=== PATIENT | female | born 1945 | race Caucasian/White ===

== ENCOUNTER 2017-02-19 07:00 | Day surgery (SDC) | payer MEDICARE ==
[~2017-02-19 07:00] MED LIST: Acetaminophen TAB* 325 MG PO PRN; Buffered Lidocaine 0.9% SYRIN* 5 ML/SYR SYRINGE INTRADERM ONE
[2017-02-19] MEDS ORDERED: Midazolam* 1 MG/ML 2 ML VIAL (2 MG) ONE ×2 (08:43→08:52)
[2017-02-19 09:13] VITALS: BP 116/64
[2017-02-19] MEDS ORDERED: Proparacaine 0.5% OPHTH.SOL* 15 ML BTL ONE (11:07)
[2017-02-19] MEDS ORDERED: Lidocaine 1% MPF* 2 ML VIAL ONE (11:07)
[2017-02-19] MEDS ORDERED: Cyclopentolate 1% OPTH.SOL* 2 ML BTL ONE (11:07)
[2017-02-19] MEDS ORDERED: Povidone Iodine 5% OPTH* 30 ML BTL ONE (11:07)
[2017-02-19] MEDS ORDERED: acetaZOLAMIDE TAB* 250 MG ONE (11:07)
[2017-02-19] MEDS ORDERED: Flurbiprofen 0.03% OPTH.SOL* 2.5 ML BTL ONE (11:07)
[2017-02-19] MEDS ORDERED: Phenylephrine 2.5% OPTH.SOL* 2 ML BTL ONE (11:07)
[2017-02-19] MEDS ORDERED: Buffered Lidocaine 0.9% SYRIN* 5 ML/SYR SYRINGE ONE (11:07)
[2017-02-19] MEDS ORDERED: Neomycin/Polymy/Dex OPTH.SUSP* MAXITROL 0.1% 5 ML ONE (11:07)
--- NOTE | 2017-02-20 03:42 | OP ---
DATE OF OPERATION: 02/19/17 - [facility] DATE OF : 45 SURGEON: Adrian Easley M.D. PREOPERATIVE DIAGNOSIS: Cataract, right eye POSTOPERATIVE DIAGNOSIS: Cataract, right eye OPERATIVE PROCEDURE: Phacoemulsification, right eye with IOL. DESCRIPTION OF PROCEDURE: The patient was brought to the operating room after being given 1/2% Alcaine with epinephrine drops in the preoperative area. The eye was prepped and draped in the usual sterile fashion. Sterile drape and eyelid speculum were placed. Again, topical 1/2% Alcaine with epinephrine was given. A paracentesis incision was made at the 9 o'clock position with the No.75 blade. Clear cornea incision 2.2 x 2.2-mm was created at the 12 o'clock position starting at the anterior limbus using the 2.2-mm keratome. The anterior chamber was irrigated with 0.4 mL of 1% non-preservative intracameral lidocaine and filled with DisCoVisc. A capsulorrhexis was completed using the cystotome and the Utrata forceps. Hydrodissection was performed with balanced salt solution. The lens nucleus was removed with the Phacoemulsification handpiece without incident. Cortex was removed with the irrigation-aspiration handpiece. The capsular bag was re-inflated using DisCoVisc and an SN60WF 19.5 implant was inserted with the shooter. The irrigation-aspiration handpiece was used to remove all residual DisCoVisc. The eye was refilled with balanced salt solution and the wound checked and found to be watertight. Topical Maxitrol drops were given. [id number]/[facility] #: [id number] [facility]
== END 2017-02-19 09:23 | disposition home or self-care (01) ==
LOC: OREAST 07:00
PROVIDERS: ATTEND Specialist
DX: H25.11 Age-related nuclear cataract, right eye (principal); H43.813 Vitreous degeneration, bilateral
CPT/HCPCS: A9270-GY; J2250; V2632

== ENCOUNTER 2017-02-26 07:33 | Day surgery (SDC) | payer MEDICARE ==
[2017-02-26] MEDS ORDERED: fentaNYL* 50 MCG/ML 2 ML VIAL (100 MCG VIAL) ONE (08:51)
[2017-02-26] MEDS ORDERED: Midazolam* 1 MG/ML 2 ML VIAL (2 MG) ONE (08:52)
[2017-02-26 09:49] VITALS: BP 110/73
--- NOTE | 2017-02-26 10:01 | OP ---
DATE OF OPERATION: 02/26/2017. DATE OF : 1945. SURGEON: Adrian Easley M.D. PREOPERATIVE DIAGNOSIS: Cataract left eye. POSTOPERATIVE DIAGNOSIS: Cataract left eye. OPERATIVE PROCEDURE: Phacoemulsification left eye with IOL. PROCEDURE: The patient was brought to the operating room after being given 1/2% Alcaine with epinep hrine drops in the preoperative area. The eye was prepped and draped in the usual sterile fashion. Sterile drape and eyelid speculum were placed. Again, topical 1/2% Alcaine with epinephrine was gi leonardo. A paracentesis incision was made at the 3 o'clock position with the No.75 blade. Clear cornea incision 2.2 x 2.2-mm was created at the 6 o'clock position starting at the anterior limbus using t he 2.2-mm keratome. The anterior chamber was irrigated with 0.4 mL of 1% non-preservative intracame ral lidocaine and filled with DisCoVisc. A capsulorrhexis was completed using the cystotome and the Utrata forceps. Hydrodissection was performed with balanced salt solution. The lens nucleus was re moved with the Phacoemulsification handpiece without incident. Cortex was removed with the irrigati on-aspiration handpiece. The capsular bag was re-inflated using DisCoVisc and an [id number] 19 implant was inserted with the shooter. The irrigation-aspiration handpiece was used to remove all residual DisCoVisc. The eye was refilled with balanced salt solution and the wound checked and found to be w atertight. Topical Maxitrol drops were given. [id number]/[facility] #: [id number]
[2017-02-26] MEDS ORDERED: Lidocaine 1% MPF* 2 ML VIAL ONE (10:06)
[2017-02-26] MEDS ORDERED: Proparacaine 0.5% OPHTH.SOL* 15 ML BTL ONE (10:06)
[2017-02-26] MEDS ORDERED: Cyclopentolate 1% OPTH.SOL* 2 ML BTL ONE (10:06)
[2017-02-26] MEDS ORDERED: Neomycin/Polymy/Dex OPTH.SUSP* MAXITROL 0.1% 5 ML ONE (10:06)
[2017-02-26] MEDS ORDERED: Buffered Lidocaine 0.9% SYRIN* 5 ML/SYR SYRINGE ONE (10:06)
[2017-02-26] MEDS ORDERED: Flurbiprofen 0.03% OPTH.SOL* 2.5 ML BTL ONE (10:06)
[2017-02-26] MEDS ORDERED: acetaZOLAMIDE TAB* 250 MG ONE (10:06)
[2017-02-26] MEDS ORDERED: Povidone Iodine 5% OPTH* 30 ML BTL ONE (10:06)
[2017-02-26] MEDS ORDERED: Phenylephrine 2.5% OPTH.SOL* 2 ML BTL ONE (10:06)
== END 2017-02-26 09:43 | disposition home or self-care (01) ==
LOC: OREAST 07:33
PROVIDERS: ATTEND Specialist
DX: H25.12 Age-related nuclear cataract, left eye (principal); H43.813 Vitreous degeneration, bilateral
CPT/HCPCS: A9270-GY; J2250; J3010; V2632

== ENCOUNTER 2017-07-28 07:33 | Observation (INO) | payer MEDICARE ==
--- NOTE | 2017-07-10 16:55 | HP ---
AMENDED REPORT TO CORRECT ACCOUNT CC: Dajuan Smith MD* ADMISSION HISTORY AND PHYSICAL: DATE OF SURGERY: 07/28/17 ATTENDING SURGEON: Merrick German MD* (dictated by GAY Juarez) PRIMARY CARE PHYSICIAN: Dajuan Smith MD CHIEF COMPLAINT: Ventral hernia. HISTORY OF PRESENT ILLNESS: Ms. Fregoso is a pleasant 72-year-old female who returned to the office today to discuss ventral hernia repair. She notes that she has been doing well overall and denies any significant changes n her hernia. She is status post right colectomy back in 2014 with small supraumbilical incision. She noticed some bulging and occasional discomfort at the scar site for the past year or so, for which she has been evaluated and found to have a small ventral hernia. She was seen by Dr. German last month and found to have a small ventral incisional hernia in that site and we discussed with her proceeding with surgery. She denies any changes in the size of the hernia, changes in the bowel habits, abdominal distention, nausea, vomiting, or any other associated symptoms. She noticed increased bulge in the area when she coughed or sneezed; however, she has been able to reduce it manually every time. She was initially scheduled for a hernia repair over the summer; however, it had to be postponed due to a surgery that her had. She reports no significant changes since her last office visit and she is scheduled for hernia repair to be performed by Dr. German next month. PAST MEDICAL HISTORY: Significant for hyperlipidemia and gastroesophageal reflux disease. PAST SURGICAL HISTORY: Significant for a laparoscopic-assisted right colectomy back in 2014 due to a dysplastic polyp. 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 Most recently in February, she had bilateral cataract extractions. CURRENT MEDICATIONS: Include: 1. Lansoprazole 30 mg once daily. 2. Atorvastatin 40 mg 1 tablet daily. ALLERGIES: She is allergic to SULFA and AUGMENTIN. FAMILY HISTORY: Her father in his 40s from a car accident and mom in her 70s from complication of congestive heart failure. She denies any family history of colorectal malignancies. SOCIAL HISTORY: The patient is retired. She has never smoked. She drinks alcohol rarely and caffeine intake is minimal. REVIEW OF SYSTEMS: See HPI; otherwise, negative. She denies any headache, dizziness, blurred vision or double vision. No cough, sore throat, shortness of breath or wheezing. She denies any chest pain, palpitation or ankle edema. No back pain, flank pain, dysuria, hematuria, or urinary frequency. She admits to ventral hernia, but denies any changes in her bowel habits, nausea, vomiting or bleeding per rectum. No fever, chills, weight loss or night sweats. PHYSICAL EXAMINATION GENERAL: She is a pleasant healthy appearing 72-year-old female, in no acute distress or discomfort at this visit. VITAL SIGNS: Her vitals today revealed blood pressure of 114/74, pulse of 66, respirations of 16, temperature of 97.4. She weighs 190 pounds over a 5 feet 7 inch frame with a BMI of 30. HEENT: Head is normocephalic, atraumatic. PERRLA. Sclerae anicteric. EOMs intact. Oropharynx is pink and moist. NECK: Supple. Trachea midline. No cervical adenopathy or thyromegaly. LUNGS: Clear to auscultation bilaterally. There are no rales, wheezes, or rhonchi. HEART: Regular rate and rhythm. Normal S1 and S2 without rubs, murmurs, or gallops. BACK: Normal curvature. No CVA tenderness. BREAST EXAM: Deferred at this time. ABDOMEN: Soft, nontender and nondistended. There is a well-healed supraumbilical midline scar approximately 5 to 6 cm noted with no surrounding tenderness, erythema or swelling. There is a ventral hernia noted on deep palpation measuring approximately 3 to 4 cm that was again nontender on palpation. The patient was examined in both supine and standing position and there was no evidence of hernia or incarceration. No other hernias, masses or hepatosplenomegaly noted. RECTAL: Deferred at this time. NEUROLOGIC: Grossly intact. IMPRESSION: A 72-year-old female with a small ventral incisional hernia. PLAN: The patient is scheduled for an open ventral incisional hernia repair with mesh to be performed on 07/28/[address] German. The rationale, indications, risks and benefits of surgery were discussed with her today. Risks include but not limited to infection, bleeding, or injury to adjacent structures. She seems to understand and wishes to proceed as outlined. We will follow her up a week postoperatively as planned. GAY JUAREZ [id number]/[facility] #: [id number] [facility]
[~2017-07-28 07:33] MED LIST changes: -Acetaminophen TAB* 325 MG PO PRN; -Buffered Lidocaine 0.9% SYRIN* 5 ML/SYR SYRINGE INTRADERM ONE; +Buffered Lidocaine 0.9% SYRIN* 5 ML/SYR SYRINGE ONE; +Clindamycin 900 MG IVPREMIX(* 900 MG/50 ML SDV IV ONE
[2017-07-28] MEDS ORDERED: fentaNYL* 50 MCG/ML 2 ML VIAL (100 MCG VIAL) ONE ×4 (09:16→12:13)
[2017-07-28] MEDS ORDERED: Atracurium* 10 MG/ML 10 ML VIAL ONE (09:17)
[2017-07-28] MEDS ORDERED: Ondansetron INJ* 2 MG/ML VIAL IV PRN ×2 (10:47→12:42)
[2017-07-28] MEDS ORDERED: Ketorolac INJ* 30 MG/ML 1 ML VIAL IV PRN (10:47)
[2017-07-28] MEDS ORDERED: Naloxone* 0.4 MG/ML 1 ML VIAL IV PRN (10:47)
[2017-07-28] MEDS ORDERED: Ketorolac INJ* 30 MG/ML 1 ML VIAL ONE (11:54)
[2017-07-28] MEDS ORDERED: Ondansetron INJ* 2 MG/ML VIAL ONE (11:54)
[2017-07-28] MEDS: fentaNYL* 50 MCG/ML 2 ML VIAL (100 MCG VIAL) IV PRN ×4 (12:01→12:53)
[2017-07-28] MEDS ORDERED: Docusate CAP* 100 MG PO PRN (12:42)
[2017-07-28] MEDS ORDERED: HYDROmorphone INJ* 2 MG/ML CARPUJECT SYRINGE IV PRN (12:42)
[2017-07-28] MEDS ORDERED: Scopolamine 1.5 mg* PATCH ONE (12:43)
[2017-07-28] MEDS ORDERED: DiMENhydriNATE IV* 50 MG/ML VIAL ONE (12:47)
--- NOTE | 2017-07-28 12:50 | PN ---
Progress Note - Progress Note Date of Service: 07/28/17 Note: Brief Operative Note: Pre-op: Ventral incisional hernia Post-op: Same Procedure: Laparoscopic VIH repair with mesh Surgeon: Dr. German Archivist Economic History: GAY Bacon Anaesthesia: GETA Fluids: LR 1500 cc EBL: Minimal Drains: None Catheter: Mitchell to gravity; d/c'ed at PACU Specimen: None Findings: see dictated op note
[2017-07-28] MEDS: oxyCODONE/Acetamin 5/325 MG* TAB PO PRN (19:09)
[2017-07-28] MEDS: Heparin VIAL(*) 5000 UNITS/ML VIAL (FIVE THOUSAND) SUBCUT SCH (21:42)
[2017-07-29] MEDS: oxyCODONE/Acetamin 5/325 MG* TAB PO PRN ×2 (00:19→19:40)
[2017-07-29] MEDS: Omeprazole CAP* 20 MG PO SCH (05:55)
[2017-07-29] MEDS: Heparin VIAL(*) 5000 UNITS/ML VIAL (FIVE THOUSAND) SUBCUT SCH ×3 (05:56→21:01)
[2017-07-29] MEDS: Ketorolac INJ* 30 MG/ML 1 ML VIAL IV PRN ×2 (05:57→12:27)
--- NOTE | 2017-07-29 08:19 | PN ---
Progress Note - Progress Note Date of Service: 07/29/17 SOAP: Subjective: She is doing well-had some nausea last night but no vomiting Pain is adequately controlled She ambulated a little last night She needed some oxygen last night but now doing well Objective: Temp Pulse Resp BP Pulse Ox 98.3 F 71 16 91/51 95 07/29/17 07:29 07/29/17 07:29 07/29/17 07:29 07/29/17 07:29 07/29/17 07:29 Intake & Output 07/27/17 07/28/17 07/29/17 07/30/17 06:59 06:59 06:59 06:59 Intake Total 3357 Output Total 1100 Balance 2257 Intake: IV Fluids 2587 LR 2587 Oral 770 Output: Urine 800 Mitchell 300 Other: # Bowel Movements 0 Estimated Blood Loss MINIMAL Comment # Voids 0 PEX: Comfortable Lungs are clear Abd is soft and non-distended. Incisions are clean and dry. 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 Will advance diet, increase activity and see how she feels later today
[2017-07-29] MEDS: Atorvastatin* 40 MG TAB PO SCH (09:41)
--- NOTE | 2017-07-29 14:39 | OP ---
DATE OF OPERATION: 07/28/17 - ROOM #[id number] DATE OF : 45 SURGEON: Merrick German MD [employer] SALESPERSON: GAY Steele ANESTHESIOLOGIST: Berhane Ortega MD ANESTHESIA: General with local. PRE-OP DIAGNOSIS: Ventral incisional hernia. POST-OP DIAGNOSIS: Ventral incisional hernia. OPERATIVE PROCEDURE: Laparoscopic repair of ventral incisional hernia with a Bard Ventrio ST Echo PS 15-cm circular mesh with positioning system placement. INDICATIONS: Ms. Elizabeth Fregoso is a 72-year-old woman who had undergone a laparoscopic right hemicolectomy several years ago, has a ventral incisional hernia causing discomfort, is now to undergo an elective repair. IV FLUIDS: 1.5 L of crystalloids. WOUND CLASSIFICATION: 1. COMPLICATIONS: None. DRAINS: None. SPECIMENS: None. DESCRIPTION OF PROCEDURE: Written and informed consent was obtained and the abdomen was markedly with indelible ink. Preoperative antibiotics were administered and the patient was taken to the operating room and placed in supine position. Sequential compression devices and a warming blanket were applied. General anesthesia was administered. Mitchell catheter was inserted. The abdomen was prepped and draped in usual sterile fashion. Time-out verification was then completed. Initially, a small transverse incision was made in the left upper abdominal wall and the peritoneal cavity just below the costal margin was entered under direct vision. A 12-mm blunt port was inserted, the abdomen was insufflated to 15 mmHg. Under direct vision, two 5-mm ports were placed along the left lateral abdominal wall about midline and in the left lower quadrant. It was evident that at the incision which was midline above the umbilicus that there was a fat-containing hernia with some omentum. Using the LigaSure device and some sharp dissection, there were adhesions to the anterior abdominal wall which appeared to be mainly omentum, which were taken down. We were able to then circumferentially dissect around the hernia and this was reduced and appeared to be mainly omentum. Therw was no evidence of bowel involvement. Once this was completed, it was apparent that there were two small hernias with a fascial band between the two. These were both supraumbilical and measured probably approximately 3 to 4 cm in diameter. It was evident that the laparoscopically placed mesh would be ideal. I did take down some of the falciform ligament superiorly in anticipation to allow the mesh to be seated properly to the anterior abdominal wall. Next, after some formal measurements of the hernia size, a 15 cm x [address] mesh was then rolled up and passed through the 12-mm port and into the abdominal cavity. This was oriented correctly. An Endo Close needle was passed through the center of the lower portion of the hernia and the tubing was passed up through the anterior abdominal wall with the Endo Close needle. The positioning system was then inflated and the mesh was brought up to the anterior abdominal wall and positioned correctly to cover ther hernia nicely with generous margins of mesh surrounding the 2 hernias. The mesh was then secured to the anterior abdominal wall with CapSure tacks placed about 1 cm along the periphery. An inner ho-chunk of several tacks was also used to secure the mesh. Once this was in good position, the inflation device was then removed in usual fashion. Hemostasis was assured along the omentum where it had been dissected. The anterior abdominal wall had no other abnormalities noted. All ports were removed under direct vision of the camera. The left upper quadrant incision was then closed with two full-thickness 0 Polysorb suture. The skin at all the incisions was approximated subcuticular 4-0 Polysorb suture and Steri-Strips were applied. The patient tolerated the procedure well and was taken to the recovery room in stable condition. [id number]/[facility] #: [id number] JENNIFER
[2017-07-30] MEDS: Ketorolac INJ* 30 MG/ML 1 ML VIAL IV PRN (03:32)
[2017-07-30] MEDS: Acetaminophen TAB* 325 MG PO PRN ×2 (03:53→09:26)
[2017-07-30] MEDS: Heparin VIAL(*) 5000 UNITS/ML VIAL (FIVE THOUSAND) SUBCUT SCH (06:03)
[2017-07-30] MEDS: Omeprazole CAP* 20 MG PO SCH (06:03)
[2017-07-30 08:59] VITALS: BP 118/64
[2017-07-30] MEDS: Atorvastatin* 40 MG TAB PO SCH (09:26)
--- NOTE | 2017-07-30 09:35 | PN ---
Progress Note - Progress Note Date of Service: 07/30/17 SOAP: Subjective: Doing well--had some nausea with Percocet but pain is controlled with tylenol Passing some flatus, tolerating po Ambulating in halls Objective: Temp Pulse Resp BP Pulse Ox 98.9 F 79 16 118/64 94 07/30/17 07:40 07/30/17 07:40 07/30/17 07:40 07/30/17 07:40 07/30/17 07:40 Intake & Output 07/28/17 07/29/17 07/30/17 07/31/17 06:59 06:59 06:59 06:59 Intake Total 3357 4142 Output Total 1100 1600 300 Balance 2257 2542 -300 Intake: IV Fluids 2587 3142 LR 2587 1571 Oral 770 1000 Output: Urine 800 1600 300 Mitchell 300 Other: Estimated Void Medium # Bowel Movements 0 Estimated Blood Loss MINIMAL Comment # Voids 0 2 PEX: Comfortable Lungs are clear Abd is soft and slightly distended. Bowel sounds are present. Incision is clean and dry Ext without edema Assessment: POD#2 s/p lap repair of ventral incisional hernia Plan: D/C home Outpatient follow up arranged.
--- NOTE | 2017-07-30 22:12 | DS ---
CC: Dajuan Smith MD * DISCHARGE SUMMARY: DATE OF ADMISSION: 07/28/17 DATE OF DISCHARGE: 07/30/17 PATIENT OF: Merrick German MD ADMISSION DIAGNOSIS: Large ventral incisional hernia. DISCHARGE DIAGNOSIS: Large ventral incisional hernia. ADMITTING PHYSICIAN: Merrick German MD * (DICTATED BY GAY JUAREZ) CONSULTATIONS: None. PROCEDURE: Laparoscopic repair of ventral incisional hernia with mesh on . HISTORY OF PRESENT ILLNESS: Mrs. Fregoso is a pleasant 72-year-old female who was seen at the [facility] office to discuss ventral hernia repair. The patient apparently had a right colectomy back in 2014 with a small supra- umbilical incision noted. She has experienced some bulging and occasional discomfort at the scar site and was seen by Dr. German in the office and was diagnosed with a ventral incisional hernia. She reports back then her pain was more frequent and it appears that the bulging has increased in size, especially after she coughs or sneezed. She was seen in the office and was scheduled electively to do a hernia repair on a later day. HOSPITAL COURSE: The patient was admitted on the same day in anticipation for surgery. She was taken to the operating room on 07/28/17, where she had laparoscopic ventral incisional hernia repair with mesh by Dr. German. Her surgery went quite smoothly with no immediate complication. After recovery, she was transferred to the surgical floor for observation. She did relatively well, with only mild incisional discomfort that was well tolerated using pain medicine as needed. She was slow to ambulate on the first day postoperatively, but she continued to improve as the day progressed. Her pain was well under control and she started on clear liquid diet that she tolerated well and eventually advanced to a regular diet prior to her discharge. On the second day postoperatively, she continues to improve. She was seen by Dr. German and her discharge plans were discussed. She will be seen in the office next week for a followup and staple removal. DISCHARGE MEDICATIONS: Include: 1. Lipitor 40 mg once daily. 2. Prevacid 30 mg 1 tablet daily. 3. The patient is noted to refuse any narcotics for pain control and she will use Tylenol or Motrin at home as needed for pain. PROBLEM LIST: Ventral incisional hernia, status post laparoscopic ventral incisional hernia repair with mesh on 07/28/17. GAY JUAREZ [id number]/[facility] #: [id number] [facility]
== END 2017-07-30 10:50 | disposition home or self-care (01) ==
LOC: OR 07:33 → SSU 12:42
PROVIDERS: ADMIT Surgery; ATTEND Surgery
PROC: 0WUF4JZ Supplement Abdominal Wall with Synthetic Substitute, Percutaneous Endoscopic Approach (ICD-10-PCS; principal; 2017-07-28 09:00)
DX: K43.2 Incisional hernia without obstruction or gangrene (principal); Z87.19 Personal history of other diseases of the digestive system; Z86.39 Personal history of other endocrine, nutritional and metabolic disease
CPT/HCPCS: 94760; A9270-GY; G0378; J1240; J1644; J1885; J2405; J3010

== ENCOUNTER 2018-10-06 18:19 | Emergency (ER) | payer MEDICARE ==
[2018-10-06 19:12] LABS: Influenza A Molecular NEGATIVE (Negative); Influenza B Molecular NEGATIVE (Negative)
[2018-10-06 20:20] VITALS: BP 131/60
== END 2018-10-06 20:17 | disposition left against medical advice (07) ==
LOC: ED 18:19
DX: J11.1 Influenza due to unidentified influenza virus with other respiratory manifestations (principal); Z53.21 Procedure and treatment not carried out due to patient leaving prior to being seen by health care provider